=== PATIENT | female | born 1975 | race Caucasian/White ===

== ENCOUNTER 2019-12-24 15:49 | Outpatient (CLI) | payer OTHER, SELFPAY ==
--- NOTE | ~2019-12-24 | MM_ITS ---
EXAMINATION: MM screening [facility] BI w nic HISTORY: Screening mammogram TECHNIQUE: Craniocaudal and mediolateral oblique 3-D tomosynthesis images were obtained and synthetic 2-D images were generated. CAD analysis was submitted and interpreted. COMPARISON: 11/08/2018, 11/01/2017, 09/12/2012 BREAST PARENCHYMAL COMPOSITION: The breasts are extremely dense, which lowers the sensitivity of mamm ography. FINDINGS: There is no evidence of suspicious mass, calcification, or architectural distortion to sugg est malignancy in either breast. There has been no suspicious interval change. IMPRESSION: 1. No mammographic evidence of malignancy. 2. Recommend routine screening mammography in one year. BI-RADS Category 1: Negative Reviewed, dictated and finalized at location A.
== END 2019-12-24 15:50 | disposition home or self-care (01) ==
PROVIDERS: Visit Provider Obstetrics & Gynecology
DX: Z12.31 Encounter for screening mammogram for malignant neoplasm of breast (principal)
CPT/HCPCS: 77063; 77067

== ENCOUNTER 2021-01-19 14:36 | Outpatient (CLI) | payer OTHER, SELFPAY ==
--- NOTE | ~2021-01-19 | MM_ITS ---
EXAMINATION: MM screening [facility] BI w nic HISTORY: Screening mammogram TECHNIQUE: Craniocaudal and mediolateral oblique 3-D tomosynthesis images were obtained and synthetic 2-D images were generated. CAD analysis was submitted and interpreted. COMPARISON: 12/24/2019, 11/08/2018, 11/01/2017 BREAST PARENCHYMAL COMPOSITION: The breasts are extremely dense, which lowers the sensitivity of mamm ography. FINDINGS: There is no evidence of suspicious mass, calcification, or architectural distortion to sugg est malignancy in either breast. There has been no suspicious interval change. IMPRESSION: 1. No mammographic evidence of malignancy. 2. Recommend routine screening mammography in one year. BI-RADS Category 1: Negative Reviewed, dictated and finalized at location A.
== END 2021-01-19 14:37 | disposition home or self-care (01) ==
LOC: ANHIMG 14:38
PROVIDERS: PCP Family Medicine; Visit Provider Obstetrics & Gynecology
DX: Z12.31 Encounter for screening mammogram for malignant neoplasm of breast (principal)
CPT/HCPCS: 77063; 77067

== ENCOUNTER 2021-03-24 14:30 | Outpatient (CLI) | payer OTHER, SELFPAY ==
--- NOTE | 2021-03-24 14:31 | ECG_ITS ---
Measurements Intervals [place] Rate: 60 P: 44 WV: 143 QRS: 50 QRSD: 89 T: 44 QT: 382 QTc: 385 Interpretive Statements SINUS RHYTHM INCOMPLETE RIGHT BUNDLE BRANCH BLOCK BORDERLINE ECG Electronically Signed On 03-24-2021 15:20:13 CDT by Brian Cordero D.O.
[2021-03-24 15:56] LABS: Basophils Absolute Auto 0.1 K/mm3 (0.0-0.1); Basophils Percent Auto 1.2 % (0.2-1.2); Eosinophils Absolute Auto 0.3 K/mm3 (0-0.3); Eosinophils Percent Auto 4.6 % (0-4.4); Hematocrit 39.8 % (37.0-47.0); Immature Granulocyte Absolute 0.02 K/mm3 (0.00-0.031); Immature Granulocyte Percent A 0.3 % (0-0.5); Lymphocytes Percent Auto 24.3 % (18.3-44.2); Mean Corpuscular HGB Conc 32.7 g/dl (32-36); Mean Corpuscular Hemoglobin 31.1 pg (26-34); Mean Corpuscular Volume 95.2 fl (80-100); Mean Platelet Volume 10.2 fl (7.4-10.4); Monocytes Absolute Auto 0.8 K/mm3 (0.1-0.6); Monocytes Percent Auto 10.1 % (2.6-8.5); Neutrophils Absolute Auto 4.4 K/mm3 (1.3-6.7); Neutrophils Percent Auto 59.5 % (45.5-73.1); Platelet Count Result 219 k/mm3 (150-375); Red Blood Count 4.18 M/mm3 (4.2-5.4); Red Cell Distribution Width 12.9 % (11.5-14.5); White Blood Count 7.4 K/mm3 (4.5-10.0)
== END 2021-03-24 14:31 | disposition home or self-care (01) ==
PROVIDERS: PCP Family Medicine; Visit Provider Obstetrics & Gynecology
DX: Z01.818 Encounter for other preprocedural examination (principal); D21.9 Benign neoplasm of connective and other soft tissue, unspecified; I48.91 Unspecified atrial fibrillation; I45.10 Unspecified right bundle-branch block
CPT/HCPCS: 36415; 85025; 86850; 86900; 86901; 93005

== ENCOUNTER 2021-04-02 01:56 | Day surgery (SDC) | payer OTHER, SELFPAY ==
[2021-03-24 11:13] VITALS: BMI 23.6
--- NOTE | 2021-03-31 07:43 | PM.IMHP ---
H&P: HPI History of Present Illness Date/Time: 03/31/21 07:43 45-year-old 2 para 2 admitted for total vaginal hysterectomy and bilateral salpingectomy secondary to pelvic pain uterine prolapse enlarged uterus. Patient had previous ablation her bleeding has improved. She continues with pain discomfort dyspareunia risks and benefits reviewed including but not exclusive of , aspiration pneumonia, bleeding, transfusion, perforation injury to bowel, bladder, ureters, or other internal organs with the need for open laparotomy. She received the ACOG handout entitled hysterectomy as well as the de [facility] handout. She had all questions answered and asked to proceed Chief Complaint: Pelvic pain enlarged uterus Review of Systems Review of Systems: All systems reviewed & are unremarkable except as noted in HPI and below PMFSH Family History Family History Other Family history of arthritis Family history of malignant neoplasm Hypertension Social History Social History Smoking status: Never smoker Alcohol intake: current Spiritual care concerns: No Meds Home Medications and Allergies Home Medications Medication Instructions Recorded Confirmed Type ascorbic acid (vitamin C) [Vitamin 500 mg PO DAILY 03/24/21 03/24/21 History C] aspirin 81 mg PO DAILY 03/24/21 03/24/21 History multivitamin 1 tablet PO DAILY 03/24/21 03/24/21 History Allergies Allergy/AdvReac Type Severity Reaction Status Date / Time shrimp Allergy Severe Anaphylactic Verified 03/24/21 11:04 Shock cephalexin Allergy Intermediate Hives Verified 03/24/21 11:04 Exam Const: General: no acute distress Eyes: General: appearance normal, both eyes and all related structures Neck: Neck: supple and no JVD Thyroid: thyroid normal Resp: Effort & Inspection: normal respiratory effort Auscultation: clear to auscultation bilaterally Cardio: Rate: regular rate Rhythm: regular rhythm GI: Inspection: non-distended GI Palp: Yes Soft to palpation, No Tenderness to palpation present (GI) and No Guarding due to palpation present (GI) Auscultation: normal bowel sounds : External Female Exam: normal external appearance Speculum Exam - Vagina: normal appearance of the vagina Bimanual exam- vagina & uterus: enlarged and Uterine tenderness Bimanual Exam- Adnexa, other: normal adnexae Skin: General skin exam: no rashes or lesions noted Extrem: General: normal to inspection and no edema Psych: Mental Status: mental status grossly normal Affect: normal affect Assessment and Plan Additional Plan Impression: Enlarged uterus with pelvic pain Plan: Robotic total vaginal hysterectomy bilateral salpingectomy
[2021-04-02] VITALS (12 sets, daily range): BP systolic 93–120; BP diastolic 52–91; PULSE 45–69; RESP 13–20; TEMP 36.8–37.4; O2SAT 96–100
[2021-04-02] MEDS: KETOROLAC 15 MG/ML VIAL (*BKC) IV PUSH (06:43)
[2021-04-02] MEDS: ACETAMINOPHEN 500 MG TABLET 1000 MG PO (06:43)
--- NOTE | 2021-04-02 06:55 | WPDANESEPPF ---
Anes - Initial Pre Proc Eval Procedure: Operation Date: 04/02/21 07:30 Proposed Procedures p Robotic Assisted Total Vaginal Hysterectomy, Bilateral Salpingectomy - Cesar Ann MD Date/Time: 04/02/21 06:55 Surgeon: Cesar Ann MD Pre Op Diagnosis: Heavy Bleeding, post ablation,enlg uterus,fibroids Patient Data Age: 45 Gender: F Height: 1.75 m Weight: 69.55 kg Allergies Allergy/AdvReac Type Severity Reaction Status Date / Time shrimp Allergy Severe Anaphylactic Verified 04/02/21 06:17 Shock cephalexin Allergy Intermediate Hives Verified 04/02/21 06:17 Home Medications Medication Instructions Recorded Confirmed Type ascorbic acid (vitamin C) [Vitamin 500 mg PO DAILY 03/24/21 04/02/21 History C] aspirin 81 mg PO DAILY 03/24/21 04/02/21 History multivitamin 1 tablet PO DAILY 03/24/21 04/02/21 History Patient hx anesthesia problems: none Family hx anesthesia problems: none Results Review: All pre-operative results and documents have been reviewed as part of the pre-operative evaluation. PMFSH Past Medical History Medical History Afib Family History Family History Other Family history of arthritis Family history of malignant neoplasm Hypertension Social History Social History Smoking status: Never smoker Alcohol intake: current Living arrangements: with family Spiritual care concerns: No Anes - Eval Final PreProcedure Day of Procedure 04/02/21 06:55 Patient weight: normal Heart: regular rate and rhythm Lungs: clear to auscultation Airway: Mallampati scale class II Neurological: alert and oriented Last oral intake: >/= 8 hours ASA classification: II Emergent: no Anesthetic plan: proceed Anesthesia type and monitoring: general ETT and standard monitoring Results Review: All pre-operative results and documents have been reviewed as part of the pre-operative evaluation. Informed Consent: The patient's anesthetic plan and its attendant risks and benefits were discussed with the patient/family/POA. Questions were solicited and answers provided to the satisfaction of the patient/family/POA.
--- NOTE | 2021-04-02 07:07 | WPDHPUPDATE1 ---
History and Physical Update Update Date/Time: 04/02/21 07:07 History and Physical has been reviewed, including an updated exam of the patient. There are NO changes in the patient's condition. Risks, benefits, and alternatives have been discussed and questions answered. Patient agrees to proceed with procedure.
[2021-04-02] MEDS: LACTATED RINGERS 1,000 ML 30 ML IV CONT ×2 (07:11→09:10)
[2021-04-02] MEDS: GENTAMICIN SULFATE INJ 360 MG in DEXTROSE 5% 100 ML 109 MG IVPB (07:23)
[2021-04-02] MEDS: CLINDAMYCIN 900 MG/D5W 50 ML 900 MG/50 ML PIGGYBACK 50 MG IVPB (07:42)
--- NOTE | 2021-04-02 08:53 | W.PM.PROC2 ---
Procedure Note - Detailed Date of Procedure 04/02/21 Pre-op Diagnosis Heavy Bleeding, post ablation,enlg uterus,fibroids Post-op Diagnosis same Procedure Performed Robotic total vaginal hysterectomy and bilateral salpingectomy Surgeon Cesar Ann MD Anesthesia general Indications This is a 45-year-old female with pelvic pain and symptomatic uterine fibroids Findings Enlarged fibroid uterus. Normal-appearing tubes and ovaries. Description of Procedure The patient was prepped draped in the normal sterile fashion placed in dorsal lithotomy position. Under excellent general trach anesthesia weighted speculum placed posterior fornix vagina. Anterior lip of the cervix grasped with single-tooth tenaculum the uterus sounded to 10cm. Serial dilatation with fragmented dilators performed followed by passage of the GINI and the 3. 0.5 cold cup. Next 16 [place] catheter placed in bladder clear urine. The remainder the instruments removed the gloves were changed. A supraumbilical incision made the Veress needle passed in the abdomen. Abdomen filled with CO2 gas [id number]. The 8mm trocar advanced under direct visualization assuring no injury. The patient placed in Trendelenburg and right left lateral quadrant incisions made. 8mm trocars were advanced under direct visualization assuring no injury. The 8mm trocar was advanced in the right upper quadrant under direct visualization assuring no injury. The robot was docked. Attention was turned to the prevocational/rehabilitation counselor. The left round ligament grasped, burned, cut. Anterior bladder flap was formed by sharply dissecting the peritoneum and reflecting the bladder caudally from cervix and uterus to the opposite round ligament which was clamped, burned, cut. Next the left fallopian tube was grasped and dissected away from the ovary and left attached at its uterine attachment. This was repeated on the contralateral side. Next the utero-ovarian ligament was clamped, burned, cut and brought to the level of previously cut round ligament to conserve the left ovary. The right ovary was conserved by clamping burning and cutting the utero-ovarian ligament on the right and bringing that to the level of the previously cut round ligament. Next cardinal broad ligaments on the left were serially skeletonized these were clamped, burned, cut brought down lateral edge of the uterus until the uterine vessels could be seen on the left these were individually clamped, burned, cut. In like fashion the cardinal broad ligaments on the right were serially skeletonized these were clamped, burned, cut brought down lateral edge of the uterus and cervix until the uterine vessels could be seen on the right these were individually clamped, burned, cut. A colpotomy incision was made in the uterus cervix and tubes removed through the vagina. The vagina was then closed with continuous running 0V lock from lateral edge to lateral edge back to the midline. Irrigation undertaken until clear blood loss estimated at25cc. The robot was undocked. The gas removed from the abdomen. The trocars removed from the abdomen and the incisions closed with 4 Monocryl glue. Instruments were removed from the vagina and the patient was awakened. All sponge, needle, instrument counts were correct. There were no immediate complications blood loss was estimated 25cc Estimated Blood Loss 25 Drains No Packing No Pathology yes Complications No immediate complications Condition stable Disposition PACU
--- NOTE | 2021-04-02 09:30 | SUR.PHASEI ---
0920- angel small placed on pt. No c/o pain when asked.
--- NOTE | 2021-04-02 09:51 | SUR.PHASEI ---
0950 - family member updated.
[2021-04-02] MEDS: fentaNYL CITRATE INJ (*CRX) 100 MCG/2 ML VIAL 25 MCG IV PUSH (09:59)
[2021-04-02] MEDS: DEXTROSE 5%/LACTATED RINGERS 1,000 ML 125 ML IV CONT (11:25)
[2021-04-02] MEDS: KETOROLAC 30 MG/ML VIAL (*BKC) IV PUSH (11:27)
[2021-04-02] MEDS: ENOXAPARIN 40 MG/0.4 ML SYRINGE SUB-Q (11:30)
[2021-04-02] MEDS: HYDROcodone/acetaminophen (*CRX) 10-325 MG TABLET 1 TAB PO ×3 (11:57→23:38)
[2021-04-02] MEDS: HYDROcodone/acetaminophen (*CRX) 5-325 MG TABLET 1 TAB PO ×2 (15:34→16:45)
[2021-04-02] MEDS: DOCUSATE SODIUM 100 MG CAPSULE PO (15:38)
[2021-04-02] MEDS: IBUPROFEN 600 MG TABLET PO (20:09)
[2021-04-02] MEDS: SENNA/DOCUSATE SODIUM TABLET 2 TAB PO (20:09)
--- NOTE | 2021-04-02 20:27 | PC.NURSE ---
1038 Pt admitted to room 289 per bed from PACU after Robotic Hysterectomy today at [address] Olivier Brown. Pt awake but sleepy; responding appropriately; oriented to room, staffing and procedures. VSS and assessment WNL.
[2021-04-03] MEDS: IBUPROFEN 600 MG TABLET PO (03:05)
[2021-04-03] MEDS: HYDROcodone/acetaminophen (*CRX) 10-325 MG TABLET 1 TAB PO ×2 (03:05→07:49)
[2021-04-03 03:45] VITALS: BP 109/60; PULSE 51; RESP 16; TEMP 36.9; O2SAT 100
[2021-04-03 05:25] LABS: Basophils Absolute Auto 0.1 K/mm3 (0.0-0.1); Basophils Percent Auto 0.5 % (0.2-1.2); Eosinophils Absolute Auto 0.2 K/mm3 (0-0.3); Eosinophils Percent Auto 1.6 % (0-4.4); Hemoglobin 11.6 g/dL (12.0-15.0); Immature Granulocyte Absolute 0.06 K/mm3 (0.00-0.031); Immature Granulocyte Percent A 0.4 % (0-0.5); Lymphocytes Absolute Auto 2.25 K/mm3 (0.9-3.2); Lymphocytes Percent Auto 16.6 % (18.3-44.2); Mean Corpuscular HGB Conc 33.1 g/dl (32-36); Mean Corpuscular Hemoglobin 31.7 pg (26-34); Mean Corpuscular Volume 95.6 fl (80-100); Mean Platelet Volume 11.1 fl (7.4-10.4); Monocytes Percent Auto 7.4 % (2.6-8.5); Neutrophils Absolute Auto 9.9 K/mm3 (1.3-6.7); Neutrophils Percent Auto 73.5 % (45.5-73.1); Platelet Count Result 196 k/mm3 (150-375); Red Blood Count 3.66 M/mm3 (4.2-5.4); Red Cell Distribution Width 12.5 % (11.5-14.5); White Blood Count 13.5 K/mm3 (4.5-10.0)
--- NOTE | 2021-04-03 07:18 | P.DS_ITS ---
DS: Admitting Diagnosis Discharge Date 04/03/21 Admitting Diagnosis pelvic pain enlarged uterus pelvic organ prolapse DS: Summary Hospital Course Hospital Course: Winifred Klein was admitted after robotic assisted total laparoscopic hysterectomy and bilateral salpingectomy for pelvic pain, enlarged uterus and pelvic organ prolapse. The above procedure was performed with no complications. She is doing well post op. She states her pain is well controlled with PO medications. She reports minimal bleeding. She is ambulating up to the chair. Her williamosn catheter was removed. She is tolerating PO without N/V. She reports passing flatus. Status at Discharge Overall status at discharge: patient is progressing back to baseline Time Spent with Patient Time attestation: Total time spent providing and/or coordinating discharge services: Time spent: Less than 30 minutes Exam Const: General: comfortable and no acute distress Limitations: no limitations Resp: Effort & Inspection: normal respiratory effort Auscultation: clear to auscultation bilaterally Cardio: Rate: regular rate Rhythm: regular rhythm GI: Inspection: non-distended GI Palp: Yes Soft to palpation, Yes Tenderness to palpation present (GI) (milder tenderness to deep palpation) and No Guarding due to palpation present (GI) Auscultation: normal bowel sounds Other: incisions C/D/I covered with dermabond Urinary Catheter: Urinary Catheter: urine clear Skin: General skin exam: normal color Extrem: General: normal to inspection Psych: Mental Status: mental status grossly normal Affect: normal affect DS: Data Data Completed and Pending Pending studies at discharge: Pending at discharge 04/02/21 08:25 Surgical [PTH] Routine Labs on day of discharge: Labs from last 24 hours 04/03/21 03:14 WBC 13.5 H RBC 3.66 L Hgb 11.6 L Hct 35.0 L MCV 95.6 MCH 31.7 MCHC 33.1 RDW 12.5 Plt Count 196 MPV 11.1 H Immature Gran % (Auto) 0.4 Neut % (Auto) 73.5 H Lymph % (Auto) 16.6 L [place] % (Auto) 7.4 Eos % (Auto) 1.6 Baso % (Auto) 0.5 Lymph # (Auto) 2.25 [place] # (Auto) 1.0 H Eos # (Auto) 0.2 Baso # (Auto) 0.1 Abs Immat Gran (auto) 0.06 H Absolute Neuts (auto) 9.9 H Absolute Nucleated RBC 0.0 Nucleated RBC % 0.0 Discharge Plan Discharge Patient Disposition: Home, Self-Care Patient Instructions: Laparoscopic Hysterectomy (DC) Stand Alone Forms: General Discharge Instructions Follow-up/Referrals: Cesar Ann MD [Physician] - Discharge Medications: New hydrocodone-acetaminophen 5-325 mg tablet 1 tablet PO Q4H PRN (Reason: pain) Qty: 30 RF: 0 No Action multivitamin Tablet 1 tablet PO DAILY RF: 0 ascorbic acid (vitamin C) [Vitamin C] 500 mg Tablet,Chewable 500 mg PO DAILY RF: 0 aspirin 81 mg Tablet 81 mg PO DAILY RF: 0
[2021-04-03] MEDS: SIMETHICONE 80 MG TAB.CHEW PO (07:50)
[2021-04-03 07:59] VITALS: BP 111/53; PULSE 53; RESP 16; TEMP 36.5; O2SAT 100
[2021-04-03] MEDS: DOCUSATE SODIUM 100 MG CAPSULE PO (08:19)
[2021-04-03] MEDS: ENOXAPARIN 40 MG/0.4 ML SYRINGE SUB-Q (08:19)
--- NOTE | 2021-04-03 11:10 | WPDANESPN ---
Anes - Prog Note Post-Op Date/Time: 04/03/21 11:10 Cardiovascular status: normal Respiratory status: normal Airway patency: baseline Mental status: baseline Post-Op hydration status: normal Vital Signs: Last Vital Signs Temp 36.5 C 04/03/21 07:59 Pulse 53 L 04/03/21 07:59 Resp 16 04/03/21 07:59 BP 111/53 L 04/03/21 07:59 Pulse Ox 100 04/03/21 07:59 Pain Score (VAS): 07/19 I/O: Intake & Output 04/02/21 04/03/21 04/03/21 23:59 07:59 15:59 Intake Total 6890 Output Total 2650 350 Balance 4240 -350 Laboratory Tests 04/03/21 03:14 04/03/21 03:14 WBC 13.5 H RBC 3.66 L Hgb 11.6 L Hct 35.0 L MCV 95.6 MCH 31.7 MCHC 33.1 RDW 12.5 Plt Count 196 MPV 11.1 H Immature Gran % (Auto) 0.4 Neut % (Auto) 73.5 H Lymph % (Auto) 16.6 L [place] % (Auto) 7.4 Eos % (Auto) 1.6 Baso % (Auto) 0.5 Lymph # (Auto) 2.25 [place] # (Auto) 1.0 H Eos # (Auto) 0.2 Baso # (Auto) 0.1 Abs Immat Gran (auto) 0.06 H Absolute Neuts (auto) 9.9 H Absolute Nucleated RBC 0.0 Nucleated RBC % 0.0 Post-procedural complaints: none Patient Feedback: Patient satisfied with anesthetic care.
== END 2021-04-03 09:00 | disposition home or self-care (01) ==
LOC: ANHSURGERY 07:09 → ANHOB2 10:44
PROVIDERS: PCP Family Medicine; Visit Provider Obstetrics & Gynecology
PROC: (CPT 58552; principal; 2021-04-02 07:30)
DX: N92.0 Excessive and frequent menstruation with regular cycle (principal); N80.0 Endometriosis of uterus; R10.2 Pelvic and perineal pain; N94.10 Unspecified dyspareunia; N83.8 Other noninflammatory disorders of ovary, fallopian tube and broad ligament; I48.91 Unspecified atrial fibrillation; Z79.82 Long term (current) use of aspirin
CPT/HCPCS: 58552; S2900; 36415; 85025; 86850; 86900; 86901; 88307; 93005; 99199; A9270; J1100; J1170; J1200; J1580; J1650; J1885; J2250; J2590; J2704; J2710; J3010; J7030; J7120; J7121

== ENCOUNTER 2021-04-24 03:39 | Observation (INO) | payer OTHER, SELFPAY ==
[2021-04-24] VITALS (17 sets, daily range): BP systolic 95–121; BP diastolic 41–76; PULSE 60–92; RESP 13–18; TEMP 36.1–37.1; O2SAT 98–100
[2021-04-24 04:16] LABS: Basophils Absolute Auto 0.1 K/mm3 (0.0-0.1); Basophils Percent Auto 1.3 % (0.2-1.2); Eosinophils Absolute Auto 0.4 K/mm3 (0-0.3); Eosinophils Percent Auto 5.6 % (0-4.4); Hematocrit 36.2 % (37.0-47.0); Hemoglobin 11.8 g/dL (12.0-15.0); Immature Granulocyte Absolute 0.02 K/mm3 (0.00-0.031); Immature Granulocyte Percent A 0.3 % (0-0.5); Lymphocytes Absolute Auto 1.85 K/mm3 (0.9-3.2); Lymphocytes Percent Auto 24.1 % (18.3-44.2); Mean Corpuscular HGB Conc 32.6 g/dl (32-36); Mean Corpuscular Hemoglobin 31.4 pg (26-34); Mean Corpuscular Volume 96.3 fl (80-100); Mean Platelet Volume 10.1 fl (7.4-10.4); Monocytes Absolute Auto 0.8 K/mm3 (0.1-0.6); Monocytes Percent Auto 10.6 % (2.6-8.5); Neutrophils Absolute Auto 4.5 K/mm3 (1.3-6.7); Neutrophils Percent Auto 58.1 % (45.5-73.1); Platelet Count Result 263 k/mm3 (150-375); Red Blood Count 3.76 M/mm3 (4.2-5.4); Red Cell Distribution Width 12.3 % (11.5-14.5); White Blood Count 7.7 K/mm3 (4.5-10.0)
--- NOTE | 2021-04-24 04:18 | PC.NURSE ---
Patient saturating many large pads. Patient given pads and offered towels to clean up. Patient taken to room.
[2021-04-24 04:25] LABS: Alanine Aminotransferase 16 U/L (4-35); Albumin Level 4.5 g/dL (3.5-5.1); Alkaline Phosphatase 48 U/L (38-126); Anion Gap 7 mmol/L (8-16); Aspartate Amino Transferase 20 U/L (14-36); Bilirubin,Total 0.2 mg/dL (0.2-1.3); Blood Urea Nitrogen 16 mg/dL (7-17); Calcium 9.1 mg/dL (8.4-10.2); Carbon Dioxide 28 mmol/L (22-30); Chloride 104 mmol/L (98-107); Estimated Glomerular Filt Rate > 60; Glucose 107 mg/dL (65-110); Potassium 4.1 mmol/L (3.4-5.0); Sodium 139 mmol/L (137-145)
[2021-04-24 05:01] LABS: Add Urine Microscopic? YES; Appearance Urine Clear (Clear); Bilirubin Urine Negative (Negative); Blood Urine 3+ (Negative); Color Urine Colorless (Yellow); Glucose Urine UA Negative (Negative); Ketones Urine Negative (Negative); Leukocyte Esterase Ur Negative LEU/UL (Negative); Mucus Urine Rare /lpf; Nitrate Urine Negative (Negative); Protein Urine Negative (Negative); RBC Urine >75 /hpf (0-2); Specific Grav Ur 1.005 (1.001-1.035); Squamous Epithelial Cell Urine Rare /hpf (Few); Urobilinogen Urine Negative mg/dL (<2.0); WBC Urine 0-3 /hpf
--- NOTE | 2021-04-24 06:50 | ED.GENADULT ---
HPI - General Adult General Chief complaint: Vaginal Bleeding Stated complaint: Post-op hysterectomy, vaginal bleeding Time Seen by Provider: 04/24/21 04:48 Source: patient Mode of arrival: ambulatory Limitations: no limitations History of Present Illness HPI narrative: This is a 45 year old female who presents for evaluation of vaginal bleeding. PAtient had a robotic hysterectomy that was performed 3 weeks ago. She has been doing well since her procedure with only mild brown discharge. Tonight she woke up with significant vaginal bleeding with bright red blood with clots. Her bleeding is worse with standing. She denies lower abdominal pain or cramping. She has some mild lightheadedness. She states she informed Dr. Polo that she was on her way to ER. Bleeding started approximately 2 hours ago . Related Data Home Medications Medication Instructions Recorded Confirmed ascorbic acid (vitamin C) [Vitamin 500 mg PO DAILY 03/24/21 04/02/21 C] aspirin 81 mg PO DAILY 03/24/21 04/02/21 multivitamin 1 tablet PO DAILY 03/24/21 04/02/21 Allergies Allergy/AdvReac Type Severity Reaction Status Date / Time shrimp Allergy Severe Anaphylactic Verified 04/24/21 06:42 Shock cephalexin Allergy Intermediate Hives Verified 04/24/21 06:42 Review of Systems Review of Systems: All systems reviewed & are unremarkable except as noted in HPI and below PMFSH Past Medical History Medical History Afib Surgical History Surgical History S/P hysterectomy Family History Family History Other Family history of arthritis Family history of malignant neoplasm Hypertension Social History Social History Smoking status: Never smoker Alcohol intake: current Substance use: never Spiritual care concerns: No Exam Const: General: no acute distress and alert Orientation/consciousness: patient oriented x3 Eyes: EOM: EOMs intact bilaterally Resp: Effort & Inspection: normal respiratory effort and no retractions Auscultation: clear to auscultation bilaterally Cardio: Rate: regular rate Rhythm: regular rhythm Heart sounds: no murmurs GI: GI Palp: Yes Soft to palpation, No Tenderness to palpation present (GI) and No Guarding due to palpation present (GI) Auscultation: normal bowel sounds : Other: copious amounts of bright red blood pooling in vaginal vaginal vault. Unable to visualize source of bleeding after clearing out clots as bleeding continued significantly Skin: General skin exam: normal color Rashes: no rashes Neuro: General: patient oriented x3 and moves all extremities Extrem: General: normal to inspection Psych: Mental Status: mental status grossly normal Affect: normal affect Course Reevaluation(s) Reevaluation #1: Patient became diaphoretic and hypotensive. Blood transfusion to be started. I noticed Dr. polo who states is on his way to see patient. Date: 04/24/21 Time: 07:30 Consultations Consultation #1: I discussed case with Dr. Polo. He is agreeable to packing with TXA gauze and will reassess Date: 04/24/21 Time: 05:30 Consultation #2: Dr. Polo agrees to obs patient in hospital and he will see patient this morning to assess bleeding. Date: 04/24/21 Time: 06:30 Vital Signs Vital signs: Vital Signs Temperature 96.9 F L 04/24/21 03:46 Pulse Rate 87 04/24/21 03:46 Respiratory Rate 18 04/24/21 03:46 Blood Pressure 121/58 L 04/24/21 03:46 Pulse Oximetry 99 04/24/21 03:46 Temperature 98.6 F 04/24/21 20:10 Pulse Rate 72 04/24/21 20:10 Respiratory Rate 18 04/24/21 20:10 Blood Pressure 106/44 L 04/24/21 20:10 Pulse Oximetry 100 04/24/21 20:10 Medical Decision Making Medical Records Medical records reviewed: Yes I review
--- NOTE | 2021-04-24 07:30 | PC.NURSE ---
Patient family member called this nurse to the cartside, states patient feels like she is going to pass out. Patient assessed. Patient pale, diaphoretic and arousable to painful stimuli, but remains drowsy. Dr. Conner made aware of this. New orders received.
[2021-04-24] MEDS: SODIUM CHLORIDE 0.9% IV 1,000 ML 999 ML IV CONT (07:45)
[2021-04-24] MEDS: TRANEXAMIC ACID 1,000 MG/10 ML AMPUL 1000 MG IV PUSH (07:48)
[2021-04-24] MEDS: SODIUM CHLORIDE 0.9% IV 250 ML 30 ML IV CONT ×2 (08:08→08:50)
[2021-04-24] MEDS: TUBING, BLOOD PLUM PUMP TUBING 1 EACH XX (08:08)
[2021-04-24 08:16] LABS: Hematocrit 21.3 % (37.0-47.0)
[2021-04-24 08:28] LABS: Hemoglobin 6.9 g/dL (12.0-15.0)
[2021-04-24] MEDS: TUBING, BLOOD SET 1 EACH XX (08:50)
[2021-04-24] MEDS: SODIUM CHLORIDE 0.9% IV 1,000 ML 125 ML IV CONT (09:55)
--- NOTE | 2021-04-24 10:41 | PM.IMHP ---
H&P: HPI History of Present Illness Date/Time: 04/24/21 10:41 45 y/o female who had a robotic assisted TVHBS three weeks ago. She woke up early this morning with vaginal bleeding. She phoned and I advised her to go to the ED. In the ED, she had TXA packing placed, and a dose of IV TXA. Hgb dropped from 11 to 6.9, and she is receiving her second unit of PRBC when I arrive to the room. No pain. No fever. No intercourse. Chief Complaint: Vaginal bleeding Review of Systems Review of Systems: All systems reviewed & are unremarkable except as noted in HPI and below PMFSH Past Medical History Medical History Afib Surgical History Surgical History S/P hysterectomy Family History Family History Other Family history of arthritis Family history of malignant neoplasm Hypertension Social History Social History Smoking status: Never smoker Alcohol intake: current Spiritual care concerns: No Meds Home Medications and Allergies Home Medications Medication Instructions Recorded Confirmed Type ascorbic acid (vitamin C) [Vitamin 500 mg PO DAILY 03/24/21 04/02/21 History C] aspirin 81 mg PO DAILY 03/24/21 04/02/21 History multivitamin 1 tablet PO DAILY 03/24/21 04/02/21 History hydrocodone-acetaminophen 1 tablet PO Q4H PRN #30 tablet 04/02/21 Rx Allergies Allergy/AdvReac Type Severity Reaction Status Date / Time shrimp Allergy Severe Anaphylactic Verified 04/24/21 06:42 Shock cephalexin Allergy Intermediate Hives Verified 04/24/21 06:42 Vital Signs Vital Signs - 24 hr 04/24/21 03:46 04/24/21 04:23 04/24/21 05:33 Temperature 36.1 C L Pulse Rate 87 66 67 Respiratory Rate 18 16 18 Blood Pressure 121/58 L 116/73 112/68 Pulse Oximetry 99 100 100 04/24/21 06:41 04/24/21 07:59 04/24/21 08:11 Temperature 36.6 C Pulse Rate 70 71 77 Respiratory Rate 18 13 18 Blood Pressure 117/76 100/71 115/65 Pulse Oximetry 98 100 100 04/24/21 08:15 04/24/21 08:29 04/24/21 08:40 Temperature 36.7 C 36.4 C Pulse Rate 92 63 62 Respiratory Rate 13 18 18 Blood Pressure 115/65 95/65 L 95/65 L Pulse Oximetry 100 100 100 04/24/21 08:46 04/24/21 09:03 04/24/21 09:15 Temperature 36.7 C 37.1 C 36.7 C Pulse Rate 64 65 64 Respiratory Rate 18 18 18 Blood Pressure 101/53 L 99/75 L 98/70 L Pulse Oximetry 100 100 100 04/24/21 09:31 Temperature 36.6 C Pulse Rate 76 Respiratory Rate 18 Blood Pressure 117/72 Pulse Oximetry 100 Exam Const: Orientation/consciousness: patient oriented x3 Other: Well-developed, well-nourished female in no acute distress. Neck: Thyroid: thyroid normal Lymphatic: no lymphadenopathy noted (in neck, axilla or inguinal nodes) Resp: Effort & Inspection: normal respiratory effort Auscultation: clear to auscultation bilaterally Cardio: Rate: regular rate Rhythm: regular rhythm Heart sounds: S1 normal heart sound present and S2 normal heart sound present GI: Other: ABD: Soft, nontender, nondistended. No guarding or rebound tenderness. No hepatosplenomegaly. : General: Yes no CVA tenderness Other: External genitalia: normal female hair distribution, without lesion. Urethral meatus: no lesion, non prolapsed. Bladder: no mass, nontender Vagina: five 4x4 sponges removed and approx 50 mL clotted blood removed. Vaginal cuff intact. Nontender and no evidence of infection. Small bleeding noted from vaginal cuff edge. Monsel's solution was applied and good hemostasis resulted. Anus/perineum: no lesions, nontender Back/Spine/Pelvis: Back: no CVA tenderness Skin: General skin exam: normal color and no rashes or lesions noted Neuro: General: patient oriented x3 Extrem: Other: Extremities: nontender with no edema Psych: Mental Status: mental
[2021-04-24 14:25] LABS: Hematocrit 31.7 % (37.0-47.0); Hemoglobin 10.4 g/dL (12.0-15.0)
[2021-04-25 08:30] VITALS: BP 99/50; PULSE 60; PULSE 72; RESP 16; RESP 18; TEMP 37.1; O2SAT 100
== END 2021-04-25 08:52 | disposition home or self-care (01) ==
LOC: ANHED 07:00 → ANHOB2 09:00
PROVIDERS: Admitting Provider Obstetrics & Gynecology; Emergency Provider General Practice; PCP Family Medicine; Visit Provider Obstetrics & Gynecology
DX: N99.820 Postprocedural hemorrhage of a genitourinary system organ or structure following a genitourinary system procedure (principal); Z90.710 Acquired absence of both cervix and uterus
CPT/HCPCS: 36415; 36430; 80053; 81001; 85014; 85018; 85025; 86850; 86900; 86901; 86920; 96361; 96374; 99285; G0378; J7030; J7050; P9016

== ENCOUNTER 2022-01-21 10:10 | Outpatient (CLI) | payer OTHER, SELFPAY ==
--- NOTE | ~2022-01-21 | MM_ITS ---
EXAMINATION: MM screening [facility] BI w nic HISTORY: Screening mammogram TECHNIQUE: Craniocaudal and mediolateral oblique 3-D tomosynthesis images were obtained and synthetic 2-D images were generated. CAD analysis was submitted and interpreted. COMPARISON: 01/19/2021, 12/24/2019, 11/08/2018 BREAST PARENCHYMAL COMPOSITION: The breasts are extremely dense, which lowers the sensitivity of mamm ography. FINDINGS: There is no suspicious mass, calcification, or architectural distortion to suggest malignan cy in either breast. There has been no suspicious interval change. IMPRESSION: 1. No mammographic evidence of malignancy. 2. Recommend routine screening mammography in one year. BI-RADS Category 1: Negative Reviewed, dictated and finalized at location A.
== END 2022-01-21 10:11 | disposition home or self-care (01) ==
PROVIDERS: PCP Family Medicine; Visit Provider Obstetrics & Gynecology
DX: Z12.31 Encounter for screening mammogram for malignant neoplasm of breast (principal)
CPT/HCPCS: 77063; 77067

== ENCOUNTER 2023-02-01 08:46 | Outpatient (CLI) | payer OTHER, SELFPAY ==
--- NOTE | ~2023-02-01 | MM_ITS ---
EXAMINATION: MM screening [facility] BI w nic HISTORY: Screening mammogram TECHNIQUE: Craniocaudal and mediolateral oblique 3-D tomosynthesis images were obtained and synthetic 2-D images were generated. CAD analysis was submitted and interpreted. COMPARISON: 01/11/2022, 01/19/2021, 12/24/2019 BREAST PARENCHYMAL COMPOSITION: The breasts are extremely dense, which lowers the sensitivity of mamm ography. FINDINGS: No suspicious mass, calcification, or architectural distortion are identified in either k[place] ast to suggest malignancy. There has been no suspicious interval change. IMPRESSION: 1. No mammographic evidence of malignancy. 2. Recommend routine screening mammography in one year. BI-RADS Category 1: Negative Reviewed, dictated and finalized at location A.
== END 2023-02-01 08:47 | disposition home or self-care (01) ==
PROVIDERS: PCP Family Medicine; Visit Provider Obstetrics & Gynecology
DX: Z12.31 Encounter for screening mammogram for malignant neoplasm of breast (principal)
CPT/HCPCS: 77063; 77067

== ENCOUNTER 2024-02-07 08:52 | Outpatient (CLI) | payer OTHER, SELFPAY ==
--- NOTE | ~2024-02-07 | MM_ITS ---
EXAMINATION: MM screening [facility] BI w nic HISTORY: Screening TECHNIQUE: Craniocaudal and mediolateral oblique 3-D tomosynthesis images were obtained and synthetic 2-D images were generated. CAD analysis was submitted and interpreted. COMPARISON: Comparison to multiple prior studies sequentially, with oldest reviewed study dated 11/01. BREAST PARENCHYMAL COMPOSITION: Dense: The breasts are extremely dense, which lowers the sensitivity of mammography. FINDINGS: There is a possible new area of architectural distortion superiorly in the right breast on MLO view only. The left breast is stable without evidence for malignancy. IMPRESSION: 1. Possible architectural distortion superiorly in the right breast on MLO view only. 2. Additional mammographic views and possible breast ultrasound are recommended. BI-RADS Category 0: Incomplete: Needs additional imaging evaluation. Reviewed, dictated and finalized at location B. IMPRESSION: 1. Possible architectural distortion superiorly in the right breast on MLO view only. 2. Additional mammographic views and possible breast ultrasound are recommended . BI-RADS Category 0: Incomplete: Needs additional imaging evaluation.
== END 2024-02-07 08:53 | disposition home or self-care (01) ==
LOC: ANHIMG 08:53
PROVIDERS: PCP Family Medicine; Visit Provider Family Medicine
DX: Z12.31 Encounter for screening mammogram for malignant neoplasm of breast (principal); R92.8 Other abnormal and inconclusive findings on diagnostic imaging of breast
CPT/HCPCS: 77063; 77067

== ENCOUNTER 2024-02-27 10:12 | Outpatient (CLI) | payer OTHER, SELFPAY ==
--- NOTE | ~2024-02-27 | MMUS_ITS ---
....... EXAMINATION: MM diagnostic [facility] RT w nic, US breast RT complete HISTORY: Follow-up possible architectural distortion of the right breast TECHNIQUE: Additional 3-D tomosynthesis images of the right breast were performed and synthetic 2-D i mages were generated. CAD analysis was submitted and interpreted. High resolution complete right [address] st ultrasound was performed. COMPARISON: Comparison to multiple prior studies sequentially, with oldest reviewed study dated 08/2018. BREAST PARENCHYMAL COMPOSITION: Dense: The breasts are extremely dense, which lowers the sensitivity of mammography. FINDINGS: MAMMOGRAPHIC FINDINGS: No suspicious mass, calcification or architectural distortion is identified with spot compression or mediolateral views of the right breast. ULTRASOUND: Complete US of all 4 quadrants of the breast/s and retroareolar region was reviewed. Right breast is composed of normal heterogeneous echotexture. There is a 6 mm cyst at 1:00, 1 cm from the nipple. No suspicious solid masses to suggest malignancy. IMPRESSION: 1. No evidence for malignancy in the right breast. 2. Routine yearly screening mammogram and regular clinical breast examination are recommended. BI-RADS Category 2: Benign finding(s). Reviewed, dictated and finalized at location B. IMPRESSION: 1. No evidence for malignancy in the right breast. 2. Routine yearly screening mammogram and regular clinical breast examination a re recommended. BI-RADS Category 2: Benign finding(s).
== END 2024-02-27 10:13 | disposition home or self-care (01) ==
LOC: ANHIMG 10:13
PROVIDERS: PCP Family Medicine; Visit Provider Family Medicine
DX: R92.8 Other abnormal and inconclusive findings on diagnostic imaging of breast (principal)
CPT/HCPCS: 76641; 77061; 77065; G0279

== ENCOUNTER 2025-04-03 07:13 | Outpatient (CLI) | payer OTHER, SELFPAY ==
--- NOTE | ~2025-04-03 | MM_ITS ---
EXAMINATION: MM screening [facility] BI w nic HISTORY: Screening TECHNIQUE: Craniocaudal and mediolateral oblique 3-D tomosynthesis images were obtained and synthetic 2-D images were generated. CAD analysis was submitted and interpreted. COMPARISON: Comparison to multiple prior studies sequentially, with oldest reviewed study dated , 12/24/2019 BREAST PARENCHYMAL COMPOSITION: The breasts are extremely dense, which lowers the sensitivity of mammography. FINDINGS: There is no evidence of suspicious mass, calcification, or architectural distortion to suggest malignancy in either breast. IMPRESSION: 1. No mammographic evidence of malignancy. 2. Recommend routine screening mammography in one year. BI-RADS Category 1: Negative Reviewed, dictated and finalized at location B.
--- OUTSIDE RECORDS SUMMARY | 2025-04-03 07:22 | XMS_ITS | Clinical Summary ---
Author Organization [facility] Address [address] [place] [address] Care Team Providers Care Caustic Strength Inspector Name Role Phone Dandre Ann MD Primary Care Provider [phone] Source Comments [facility],non-owned Affiliates and Associated Physician Practices is amultiple site organization consisting of ambulatory clinics and hospital sitesin [place], [place], [place] and [place]. This disclosure is being madepursuant to the Care Everywhere program and may not contain all information available regarding this patient. Last updated 18.[facility] Allergies Active Allergy Reactions Criticality Noted Date Comments Keflex Skin Reactions 11/03/2010 Family History Medical History Relation Name Comments Cancer - Skin, Non Melanoma Mother Allergy (Severe) Neg Hx CVA Neg Hx Cancer Neg Hx Cancer - Skin, Melanoma Neg Hx Eczema Neg Hx Hemophilia Neg Hx Psoriasis Neg Hx Rashes/Skin Problems Neg Hx Relation Name Status Comments Mother Social History Tobacco Use Types Packs/Day Years Used Date Smoking Tobacco: Never Smokeless Tobacco: Never Alcohol Use Standard Drinks/Week Comments Yes 0 (1 standard drink = 0.6 oz pur e alcohol) Comments Unknown Sex and Gender Information Value Date Recorded Sex Assigned at Not on file Legal Sex Female 5:44 PM NEUROLOGY DIRECTOR Gender Identity Not on file Sexual Orientation Not on file Plan of Treatment Health Maintenance Due Date Last Done Comments COLOGUARD (AGES 45-75) - COL ON CA SCREENING 1977 COLON MONITORING 1977 COLONOSCOPY - COLON CA SCREENING 1977 CT COLONOGRAPHY - COLON CA SCREENING 1977 Colorectal Cancer Screening 1977 FIT - COLON CA SCREENING 1977 FLEX SIG - COLON CA SCREENING 1977 LIPID TESTING 1977 MAMMOGRAM 1977 HIV SCREENING 1992 HEPATITIS C SCREENING 10/18/1995 DTAP/TDAP/TD VACCINES (1 - Tdap) 1996 HEPATITIS B VACCINE (1 of 3 - 19+ 3-dose series) 1996 DEPRESSION SCREENING 07/10/2024 COVID-19 VACCINE (1 - 2023-2 5 season) 2025 INFLUENZA VACCINE (#1) 2025 ZOSTER VACCINE (1 of 2) 10/23/2027 HIB VACCINE Aged Out No longer eligi ble based on patient's age to complete this topic HPV VACCINE Aged Out No longer eligi ble based on patient's age to complete this topic MENINGOCOCCAL (Group B) VACC INE SHARED DECISION-MAKING Aged Out No longer eligibl e based on patient's age to complete this topic MENINGOCOCCAL GROUPS A/C/Y/W VACCINE Aged Out No longer eligible b ased on patient's age to complete this topic PNEUMOCOCCAL VACCINE Aged Out No long er eligible based on patient's age to complete this topic Insurance [facility] Care Teams Caustic Strength Inspector Relationship Specialty [place] [address] [place] [phone] PCP - General 10/21/10
--- OUTSIDE RECORDS SUMMARY | 2025-04-03 07:22 | XMS_ITS | Encounter Summary ---
Author Organization [facility] Address [address] [place] [address] Care Team Providers Care Cigarette Making Machine Hopper Feeder Name Role Phone Dandre Ann MD Primary Care Provider Encounter Details Date Type Department Care Team (Late st Contact Info) Description 06/10/2020 Lab Requisition [facility] [address] [place] [id number] Wenceslao [place] [address] Social History Tobacco Use Types Packs/Day Years Used Date Smoking Tobacco: Never Smokeless Tobacco: Never Alcohol Use Standard Drinks/Week Comments Yes 0 (1 standard drink = 0.6 oz pur e alcohol) Comments Unknown Sex and Gender Information Value Date Recorded Sex Assigned at Not on file Legal Sex Female 5:44 PM INDIRECT SALES EXEC Gender Identity Not on file Sexual Orientation Not on file documented as of this encounter Plan of Treatment Not on file documented as of this encounter Procedures Procedure Name Priority Date/Time Associated Diagnosis Comments DERMATOPATHOLOGY Routine 06/09/2020 12:0 0 AM INDIRECT SALES EXEC documented in this encounter Results * DERMATOPATHOLOGY (06/09/2020 12:00 AM INDIRECT SALES EXEC) Case Report Dermatopathology Report Case: [id number] Authorizing Provider: Wenceslao Zamarripa MD Collected: 06/09/2020 12:00 AM Ordering Location: [facility] Received: 06/10/2020 10:54 AM Pathologist: Caitlin Varela MD Specimen: Skin, right lat superior forehead 0 4:13 PM [facility] Final Diagnosis Specimen A. SKIN, right lat superior forehead: HYPERPLASTIC (HYPERTROPHIC) ACTINIC KERATOSIS; EXTENDING TO THE BASE OF THE SPECIMEN (L57.0) (see microscopic description and comment) 0 4:13 PM [facility] at 1613 INDIRECT SALES EXEC Clinical History R/O BCC. Check margins. 0 4:13 PM [facility] Gross Description Specimen A: Received is one formalin filled container labeled with the patient's name and designated right lat superior forehead. The specimen consists of a shave biopsy measuring [id number]. The margin is inked green. Jar 0. 0 4:13 PM [facility] Microscopic Description Specimen A. SKIN, right lat superior forehead: There is hyperkeratosis alternating with parakeratosis. There is epidermal hyperplasia with disorderly maturation of keratinocytes with nuclear pleomorphism confined to the lower half of the epidermis. This process extends to the base of the specimen. COMMENT: A squamous cell carcinoma cannot be ruled out. 0 4:13 PM [facility] Disclaimer An external and internal positive and negative controls are appropriate for the histochemical, immunohistochemical and immunofluorescence stain(s) in this case (if any), except where stated explicitly. The performance characteristics of the stain(s) cited in this report were developed and its performance characteristic determined by the Dermatopathology Laboratory at [facility], directed by Dr. Chico Mcfadden. These tests need not be, and therefore are not, approved by the [place] Food and Drug Administration. The tests are used for clinical purposes. Billing Codes Specimen Charges Stain Charges 20793 1 0 4:13 PM [facility] Embedded Images 0 4:13 PM [facility] Pathology/Cytolog y TISSUE SPECIMEN FROM SKIN / Unknown 06/09/2020 06/10/2020 10:54 AM [facility] Wenceslao Zamarripa MD LAB - PATHOLOGY/CYTOLOGY ORD ERABLES Final Result DERMATOPATHOLOGY LABORATORY [facility] - Department of Dermatology [facility] [address] [place] [address], [address] [phone] documented in this encounter Visit Diagnoses Not on filedocumented in this encounter Care Teams Cigarette Making Machine Hopper Feeder Relationship Specialty [place] [id number] [facility] [address] [place] [phone] PCP - General 10/21/10 documented as of this encounter
--- OUTSIDE RECORDS SUMMARY | 2025-04-03 07:22 | XMS_ITS | Clinical Summary ---
Author Organization [facility] Address [address] [place] [address] Care Team Providers Care Flight Engineer Helicopter Name Role Phone Terri Cordova MD Primary Care Provider Allergies Active Allergy Reactions Criticality Noted Date Comments Cat Dander Hives Medium 08/25/2022 Cephalexin Shellfish Containing Products Itching Low 2022 Medications multivitamin with iron tablet Take 1 tablet by mouth daily Active ascorbic acid, vitamin C, (Vitamin C) 125 mg tablet,chewable Acti ve docusate sodium 100 mg/5 mL enema Active magnesium oxide 200 mg magnesium tablet 03/21/2022 Active sour ashton extract (Tart Ashton Extract) 1,000 mg capsule 03/21/2022 Active valACYclovir (VALTREX) 1 gram tablet TAKE 2 TABLETS BY MOUTH EVERY 12 HOURS NEEDED 08/10/2022 Active cyclobenzaprine (FLEXERIL) 10 mg tablet TAKE 1/2 TO 1 TABLETS EVERY EVENING AT BEDTIME X 2 WEEKS THEN TAKE 1/2 TO ONE TABLET NEEDED PAIN 30 tablet 04/05/2023 Active Active Problems No known active problems Surgical History Surgery Date Site/Laterality Comments HYSTERECTOMY Medical History Medical History Date Comments Atrial fibrillation (HCC) Cancer (HCC) Family History Medical History Relation Name Comments Arthritis Father Family history of arthritis - (Added by TW Conv) Cancer Father Family history of malignant neoplasm - (Added by TW Conv) Kidney disease Father Family histor y of kidney disease - (Added by TW Conv) Heart disease Mother Family history of cardiac disorder - (Added by TW Conv) Heart disease Sister Family history of cardiac disorder - (Added by TW Conv) Relation Name Status Comments Father Mother Sister Social History Tobacco Use Types Packs/Day Years Used Date Smoking Tobacco: Never Smokeless Tobacco: Never Tobacco Cessation:Counseling Given: Not Answered AUDIT-C Answer Date Recorded Q1: How often do you have a drink containing alc ohol? 2-3 times a week 02/09/2023 Q2: How many drinks containi ng alcohol do you have on a typical day when you are drinking? 1 or 2 02/09/2023 Frequency of Binge Drinking Not on file 09/2022 Comments Unknown Sex and Gender Information Value Date Recorded Sex Assigned at Not on file Legal Sex Female 12:48 AM CLEAN UP SUPERVISOR Gender Identity Not on file Sexual Orientation Not on file Obstetrics History Last Filed Vital Signs Vital Sign Reading Time Taken Comments Blood Pressure - - Pulse - - Temperature - - Respiratory Rate - - Oxygen Saturation - - Inhaled Oxygen Concentration - - Weight 73 kg (161 lb) 02/09/2023 9:11 AM CDT Height 175.3 cm (5' 9) 02/09/2023 9:11 AM CDT Body Mass Index 23.78 02/09/2023 9:11 AM CDT Plan of Treatment Health Maintenance Due Date Last Done Comments Breast Cancer Screening-Mammogram 1977 Colon Cancer Screening-Colonoscopy 1977 Depression Screening 1977 Hepatitis C Screening 1977 Hepatitis B Screening 10/23/1995 Regular Well Visit/Exam 18-64 10/23/1995 Covid-19 Vaccine ( season) 2025 01/23/2022, 09/15/2020 Influenza Vaccine (#1) 2025 8, 05/16/2016, 05/16/2016, Additional history exists DTaP/Tdap/Td Vaccine (2 - Td or Tdap) 02/05/2030 02/06/2020 Pneumococcal vaccine <65 Aged Out No longer eligible based on patient's age to complete this topic Insurance [employer] OPEN ACCESS Care Teams Flight Engineer Helicopter Relationship Specialty Start Date End Date Terri Cordova MD [address] [place] [id number] PCP - General Family Medicine 08/25/22
--- OUTSIDE RECORDS SUMMARY | 2025-04-03 07:22 | XMS_ITS | Clinical Summary ---
Author Organization [employer] [id number] [facility] Address [address] [place] [address] Care Team Providers Care Mechanical Engineering Technologist Name Role Phone [facility], External Provider Primary Care Provider Un available Allergies Active Allergy Reactions Criticality Noted Date Comments Cephalexin Hives,Rash,Unknown High 11/03/2010 Shellfish Containing Products Shortness of Breath/Wheezing High 10/20/2017 Medications multivitamin (DAILY-GRANT) tablet Take 1 Tablet by mouth daily. Active ascorbic acid, vitamin C, (VITAMIN C) 100 mg Tablet Take 100 mg by mouth daily. Active MAGNESIUM CITRATE ORAL Take by mouth. Active Active Problems No known active problems Family History Medical History Relation Name Comments Kidney Cancer Father Arrhythmia Mother Relation Name Status Comments Father Mother Alive Social History Tobacco Use Types Packs/Day Years Used Date Smoking Tobacco: Never Tobacco Cessation:Counseling Given: Not Answered Alcohol Use Standard Drinks/Week Comments Yes 3 (1 standard drink = 0.6 oz pur e alcohol) Comments Unknown Sex and Gender Information Value Date Recorded Sex Assigned at Not on file Legal Sex Female 2:28 PM POLICE JUSTICE Gender Identity Not on file Sexual Orientation Not on file Last Filed Vital Signs Vital Sign Reading Time Taken Comments Blood Pressure 118/80 07/18/2023 11:18 AM POLICE JUSTICE Pulse 72 07/18/2023 11:18 AM POLICE JUSTICE Temperature 35.3 C (95.5 F) 07/24/2020 11:45 AM POLICE JUSTICE Respiratory Rate - - Oxygen Saturation - - Inhaled Oxygen Concentration - - Weight 73 kg (161 lb) 07/18/2023 11:18 AM POLICE JUSTICE Height 175.3 cm (5' 9) 07/18/2023 11:18 AM POLICE JUSTICE Body Mass Index 23.78 07/18/2023 11:18 AM POLICE JUSTICE Plan of Treatment Health Maintenance Due Date Last Done Comments HEPATITIS B VACCINES (1 of 3 - 19+ 3-dose series) 10/08 HPV/Cotest (21-29) 1998 CERVICAL CANCER SCREENING 10/23/2007 HPV/Cotest (30-65) 10/23/2007 PAP SMEAR 10/23/2007 BREAST CANCER SCREENING 2017 COLORECTAL SCREENING 2022 Colorectal Cancer Screening 2022 FIT-DNA Q 3 years 2022 FIT/FOBT Q 1 year 2022 Flex Sig/CT Colonography Q 5 years 2022 INFLUENZA VACCINE (#1) 2025 DTAP/TDAP/TD VACCINES (2 - Td or Tdap) 02/05/2030 Insurance [employer] Care Teams Mechanical Engineering Technologist Relationship Specialty Start Date End Date [facility], External Provider [address] [place] [address] PCP - General 07/24/20
== END 2025-04-03 07:14 | disposition home or self-care (01) ==
LOC: ANHFOHIMG 07:15
PROVIDERS: PCP Family Medicine; Visit Provider Obstetrics & Gynecology
DX: Z12.31 Encounter for screening mammogram for malignant neoplasm of breast (principal)
CPT/HCPCS: 77063; 77067